=== PATIENT | male | born 1950 | race Two or more races ===

== ENCOUNTER 2017-10-17 23:12 | Emergency (ER) | payer SELFPAY ==
[~2017-10-17] VITALS: Ht 185.4 cm; Wt 79.4 kg
--- NOTE | 2017-10-17 23:20 | NUR ---
PT AMBULATORY TO ER BED 6. PT BIB RA C/O "HAVEN'T TAKEN B/P MEDS IN A MONTH, B/P HIGH". PT PLACED IN GOWN AND ON KITCHEN HAND. VSS/RESP EVEN UNLABORED/NAD NOTED/SKIN WARM AND DRY/DENIES N-V-D/AOX4. AWAITING MD JAUREGUI.
[2017-10-17] MEDS ORDERED: hydrALAZINE HCL IV 20 MG VIAL ONE (23:31)
--- NOTE | 2017-10-17 23:35 | NUR ---
20G IV TO L FA X 1 ATTEMPT USING ASEPTIC TECH, BLOOD HANDED OVER TO LAB AT BEDSIDE. IV FLUSHES EASILY W/NS.
--- NOTE | 2017-10-17 23:40 | NUR ---
EMT AT BEDSIDE FOR EKG. URINE SPECIMEN OBTAINED AND SENT TO THE LAB.
--- NOTE | 2017-10-17 23:45 | NUR ---
MEDICATED PER MD ORDERS.
[2017-10-17] MEDS: hydrALAZINE HCL IV 20 MG VIAL IV ONE (23:48)
--- NOTE | 2017-10-17 23:50 | NUR ---
PT TO CT VIA STRETCHER.
[2017-10-17 23:51] LABS: BASOPHILS % (AUTO) 0.3 % (0.0-2.0); EOSINOPHILS # (AUTO) 0.1 /CMM (0.0-0.7); EOSINOPHILS % (AUTO) 0.6 % (0.0-6.0); HEMATOCRIT 43 % (39-51); HEMOGLOBIN 14.8 g/dL (13.5-17.5); LYMPHOCYTES # (AUTO) 0.8 /CMM (0.8-4.8); LYMPHOCYTES % (AUTO) 8.8 % (20.0-44.0); MEAN CORPUSCULAR HEMOGLOBIN 30 PG (26.0-33.0); MEAN CORPUSCULAR HGB CONC 34 g/dl (31.0-36.0); MEAN CORPUSCULAR VOLUME 88 fL (80-96); MONOCYTES # (AUTO) 0.8 /CMM (0.1-1.30); MONOCYTES % (AUTO) 8.5 % (2.0-12.0); NEUTROPHILS # (AUTO) 7.8 /CMM (1.8-8.9); NEUTROPHILS % (AUTO) 81.8 % (43.0-81.0); PLATELET COUNT (AUTO) 228 /CMM (150-450); RED BLOOD CELL COUNT(AUTO) 4.94 MIL/uL (4.5-6.0); WHITE BLOOD COUNT (AUTO) 9.5 K/uL (4.3-11.0)
--- NOTE | 2017-10-17 23:57 | NUR ---
PT BACK FROM CT.
[2017-10-18 00:02] LABS: CALCIUM, SERUM 9.2 mg/dL (8.5-10.1); CARBON DIOXIDE 28 mmol/L (21-32); CHLORIDE 104 mmol/L (98-107); CREATININE 1.2 mg/dL (0.6-1.3); GLUCOSE 131 mg/dL (74-106); POTASSIUM 3.5 mmol/L (3.5-5.1); SODIUM SERUM 138 mmol/L (136-145); UREA NITROGEN, BLOOD 23 mg/dL (7-18)
[2017-10-18 00:06] LABS: INR 0.9 (0.87-1.13); PROTHROMBIN TIME 9.4 SECS (9.5-12.7)
[2017-10-18 00:08] LABS: CHOLESTEROL 209 mg/dL (<200); HDL CHOLESTEROL 64 mg/dL (40-60); LDL 136 mg/dL (0-99); TRIGLYCERIDES 87 mg/dL (30-150)
[2017-10-18 00:12] LABS: TROPONIN I < 0.017 ng/mL (0.00-0.056)
[2017-10-18] MEDS ORDERED: hydrALAZINE HCL IV 20 MG VIAL ONE (00:58)
[2017-10-18] MEDS: hydrALAZINE HCL IV 20 MG VIAL IV ONE (01:02)
--- NOTE | 2017-10-18 01:03 | NUR ---
MEDICATED PER MD ORDERS.
--- NOTE | 2017-10-18 02:24 | NUR ---
IV removed. Catheter intact and site benign. Pressure and 4x4 applied to site. No bleeding noted. Patient discharged to home in stable condition. Written and verbal after care instructions given. Patient verbalizes understanding of instruction. Patient ambulatory with a steady gait.
[2017-10-18 02:25] VITALS: BP 127/63
== END 2017-10-18 02:25 | disposition home or self-care (01) ==
LOC: ER 23:21
DX: I10 Essential (primary) hypertension (principal); R41.82 Altered mental status, unspecified
CPT/HCPCS: 36415; 70450; 71045; 80048; 80061; 84484; 85025; 85730; 93005; 96374; 96376; 99285; A4606; J0360 ×2; Z7610